=== PATIENT | female | born 1945 | race Caucasian/White ===

== ENCOUNTER 2018-03-10 09:59 | Inpatient (IN) | payer MEDICARE, MEDICAID ==
[~2018-03-10] VITALS: Ht 134.6 cm; Wt 46.0 kg
[2018-03-10] MEDS ORDERED: ACETAMINOPHEN 325MG TABLET PO STA (10:33)
[2018-03-10] MEDS ORDERED: VANCOMYCIN 1 G PREMIX 200 ML IV ONE (10:45)
[2018-03-10] MEDS ORDERED: PIPERACILLIN/TAZ 3.375G PREMIX 50 ML IV ONE (10:45)
[2018-03-10] MEDS ORDERED: SODIUM CHLORIDE 0.9% 1000ML BAG (SEPSIS BOLUS) IV ONE (10:45)
[2018-03-10 11:13] LABS: HEMOGLOBIN. 10.5 g/dL (12.0-16.0); MEAN CORPUSCULAR HEMOGLOBIN 30.6 pg (28.0-32.0); MEAN CORPUSCULAR VOLUME 92.9 fL (81.0-99.0); MEAN PLATELET VOLUME 9.1 fl (7.4-10.4); PLATELET 299 x1000/uL (130-400); RED BLOOD CELL COUNT 3.45 mill/uL (4.2-5.4); RED CELL DISTRIBUTION WIDTH 13.7 % (11.6-14.6)
[2018-03-10 11:21] LABS: INR 1.1; PROTHROMBIN TIME 11.1 sec (9.1-11.1)
[2018-03-10 11:30] LABS: CHLORIDE 103 mEq/L (98-107)
[2018-03-10 11:34] LABS: PLATELET ESTIMATE NORMAL
[2018-03-10] MEDS ORDERED: ACETAMINOPHEN 650MG SUPP PR PRN (12:45)
[2018-03-10] MEDS ORDERED: LORAZEPAM 2MG/ML CPJ IV PRN (12:45)
[2018-03-10] MEDS ORDERED: DIPHENHYDRAMINE 50MG/ML VIAL IV PRN (12:45)
[2018-03-10] MEDS ORDERED: IPRATROPIUM/ALBUTEROL 0.5-3(2.5)MG/3ML NEB INH PRN (12:45)
[2018-03-10] MEDS ORDERED: ONDANSETRON HCL 4MG/2ML INJ IV PRN (12:45)
[2018-03-10 13:07] LABS: CLARITY URINE CLEAR (CLEAR); COLOR URINE YELLOW (YELLOW); KETONES URINE TRACE (NEGATIVE); LEUKOCYTE ESTERASE URINE 1+ (NEGATIVE); NITRITE URINE NEGATIVE (NEGATIVE); OCCULT BLOOD URINE NEGATIVE (NEGATIVE); PROTEIN URINE TRACE (NEGATIVE); SPECIFIC GRAVITY URINE 1.024 (1.005-1.030); UROBILINOGEN URINE 0.2 E.U./dL (0.2-1.0)
[2018-03-10 13:50] LABS: *AMPHETAMINES SCREEN URINE NEGATIVE (NEGATIVE); *BARBITURATES SCREEN URINE NEGATIVE (NEGATIVE); *BENZODIAZEPINES SCREEN URINE NEGATIVE (NEGATIVE); *COCAINE SCREEN URINE NEGATIVE (NEGATIVE); METHADONE URINE SCREEN NEGATIVE (NEGATIVE); OPIATES URINE SCREEN NEGATIVE (NEGATIVE)
[2018-03-10 13:51] LABS: CANNABINOID URINE SCREEN NEGATIVE (NEGATIVE); PHENCYCLIDINE URINE SCREEN NEGATIVE (NEGATIVE)
[2018-03-10 15:00] VITALS: BP 143/48
[2018-03-10] MEDS: DEXT 5%/0.45% NACL 1000ML 1,000 ML IV SCH (15:00)
[2018-03-10] MEDS: ENOXAPARIN 30MG/0.3ML SYR SUBCUT SCH (15:00)
[2018-03-10] MEDS ORDERED: PANTOPRAZOLE SODIUM 40 MG/VIAL IV SCH (15:00)
[2018-03-10 16:00] VITALS: BP 138/48
[2018-03-10] MEDS ORDERED: CA C1TAB95 MT (17:49)
[2018-03-10] MEDS ORDERED: FERR220S12 MT (17:49)
[2018-03-10] MEDS ORDERED: SUCR1TAB30 PO (17:49)
[2018-03-10] MEDS ORDERED: METO-293 PO (17:49)
[2018-03-10] MEDS: PIPERACILLIN/TAZ 2.25G PREMIX 50 ML IV SCH (18:03)
[2018-03-10 20:00] VITALS: BP 118/52
[2018-03-10] MEDS: PANTOPRAZOLE SODIUM 40 MG/VIAL IV SCH (21:30)
[2018-03-11] MEDS: PIPERACILLIN/TAZ 2.25G PREMIX 50 ML IV SCH ×4 (00:14→18:00)
[2018-03-11 00:47] VITALS: BP 95/52
[2018-03-11 04:00] VITALS: BP 112/52
[2018-03-11 07:34] LABS: HEMATOCRIT. 28.8 % (36.0-48.0); HEMOGLOBIN. 9.5 g/dL (12.0-16.0); MEAN CORPUSCULAR HEMOGLOBIN 30.7 pg (28.0-32.0); MEAN CORPUSCULAR VOLUME 93.2 fL (81.0-99.0); MEAN PLATELET VOLUME 8.2 fl (7.4-10.4); PLATELET 254 x1000/uL (130-400); RED BLOOD CELL COUNT 3.09 mill/uL (4.2-5.4); RED CELL DISTRIBUTION WIDTH 13.4 % (11.6-14.6)
[2018-03-11 07:50] VITALS: BP 123/65
[2018-03-11 07:55] LABS: CHLORIDE 108 mEq/L (98-107)
[2018-03-11 08:16] LABS: LDL CHOLESTEROL 67 mg/dL (5-100)
[2018-03-11 08:17] LABS: HDL CHOLESTEROL 38 mg/dL (40-59); TOTAL IRON BINDING CAPACITY 251 ug/dL (250-450)
[2018-03-11 08:19] LABS: T4 FREE 1.48 ng/dL (0.76-1.46)
[2018-03-11 09:00] LABS: PLATELET ESTIMATE NORMAL
[2018-03-11] MEDS: PANTOPRAZOLE SODIUM 40 MG/VIAL IV SCH ×2 (09:02→20:51)
[2018-03-11] MEDS: IPRATROPIUM/ALBUTEROL 0.5-3(2.5)MG/3ML NEB INH SCH ×2 (09:05→20:34)
[2018-03-11 12:00] VITALS: BP 120/62
[2018-03-11] MEDS ORDERED: POTASSIUM CHLORIDE INJ 40 MEQ in DEXT 5% WATER 250 ML IV NR (12:00)
[2018-03-11] MEDS: DEXT 5%/0.45% NACL 1000ML 1,000 ML IV SCH (13:09)
[2018-03-11 14:45] LABS: AMYLASE 68 IU/L (25-115)
[2018-03-11] MEDS: ENOXAPARIN 30MG/0.3ML SYR SUBCUT SCH (15:13)
[2018-03-11 16:00] VITALS: BP 116/60
[2018-03-11 20:00] VITALS: BP 118/67
[2018-03-12] VITALS (7 sets, daily range): BP systolic 106–127; BP diastolic 51–62
[2018-03-12] MEDS: PIPERACILLIN/TAZ 2.25G PREMIX 50 ML IV SCH ×5 (01:02→23:46)
[2018-03-12] MEDS: DEXT 5%/0.45% NACL 1000ML 1,000 ML IV SCH ×2 (01:03→17:45)
[2018-03-12] MEDS: IPRATROPIUM/ALBUTEROL 0.5-3(2.5)MG/3ML NEB INH SCH ×4 (01:35→20:15)
[2018-03-12 08:36] LABS: CHLORIDE 111 mEq/L (98-107)
[2018-03-12 08:41] LABS: HEMATOCRIT 27.5 % (36.0-48.0); PLATELET 265 x1000/uL (130-400); RED BLOOD CELL COUNT 2.99 mill/uL (4.2-5.4); RED CELL DISTRIBUTION WIDTH 13.5 % (11.6-14.6)
[2018-03-12] MEDS: PANTOPRAZOLE SODIUM 40 MG/VIAL IV SCH ×2 (09:34→20:34)
[2018-03-13] MEDS: IPRATROPIUM/ALBUTEROL 0.5-3(2.5)MG/3ML NEB INH SCH ×4 (01:09→20:27)
[2018-03-13 03:58] VITALS: BP 91/50
[2018-03-13] MEDS: PIPERACILLIN/TAZ 2.25G PREMIX 50 ML IV SCH ×4 (05:56→18:13)
[2018-03-13 06:46] LABS: HEMATOCRIT. 30.3 % (36.0-48.0); MEAN CORPUSCULAR HEMOGLOBIN 30.7 pg (28.0-32.0); MEAN CORPUSCULAR VOLUME 92.9 fL (81.0-99.0); PLATELET 272 x1000/uL (130-400); RED BLOOD CELL COUNT 3.26 mill/uL (4.2-5.4); RED CELL DISTRIBUTION WIDTH 13.4 % (11.6-14.6)
[2018-03-13 06:52] LABS: INR 1.1; PARTIAL THROMBOPLASTIN TIME 27.8 sec (23.4-31.0); PROTHROMBIN TIME 10.6 sec (9.1-11.1)
[2018-03-13 07:46] LABS: CHLORIDE 112 mEq/L (98-107)
[2018-03-13 08:00] VITALS: BP 124/59
[2018-03-13] MEDS ORDERED: SIMETHICONE 40 MG/0.6 ML 30ML ONE (08:48)
[2018-03-13] MEDS ORDERED: KCL 20MEQ/100ML PREMIX 100 ML IV ONE (09:15)
[2018-03-13 09:25] VITALS: BP 119/68
[2018-03-13] MEDS: PANTOPRAZOLE SODIUM 40 MG/VIAL IV SCH ×3 (09:36→20:31)
[2018-03-13] MEDS: DEXT 5%/0.45% NACL 1000ML 1,000 ML IV SCH (09:39)
[2018-03-13] MEDS ORDERED: POTASSIUM CHLORIDE INJ 40 MEQ in DEXT 5% WATER 500 ML IV NR (11:00)
[2018-03-13 11:20] LABS: PLATELET ESTIMATE NORMAL
[2018-03-13 12:00] VITALS: BP 122/64
[2018-03-13] MEDS ORDERED: MIDAZOLAM HCL 5 MG/5 ML VIAL IV PRN (13:30)
[2018-03-13] MEDS ORDERED: FENTANYL CITRATE/PF 50MCG/ML 2ML VIAL IV PRN (13:31)
[2018-03-13] MEDS ORDERED: MIDAZOLAM HCL 5 MG/5 ML VIAL ONE (13:37)
[2018-03-13] MEDS ORDERED: FENTANYL CITRATE/PF 50MCG/ML 2ML VIAL ONE (13:37)
[2018-03-13 16:00] VITALS: BP 124/64
[2018-03-13 20:00] VITALS: BP 130/65
[2018-03-14] VITALS: BP 135/56
[2018-03-14] MEDS: PIPERACILLIN/TAZ 2.25G PREMIX 50 ML IV SCH ×4 (00:04→17:49)
[2018-03-14] MEDS: DEXT 5%/0.45% NACL 1000ML 1,000 ML IV SCH ×2 (00:09→09:29)
[2018-03-14 04:00] VITALS: BP 124/45
[2018-03-14] MEDS: IPRATROPIUM/ALBUTEROL 0.5-3(2.5)MG/3ML NEB INH SCH ×4 (04:14→19:58)
[2018-03-14 08:00] VITALS: BP 131/66
[2018-03-14] MEDS: PANTOPRAZOLE SODIUM 40 MG/VIAL IV SCH ×2 (09:20→20:35)
[2018-03-14 11:58] VITALS: BP 129/61
[2018-03-14 13:36] LABS: HEMATOCRIT 28.8 % (36.0-48.0); HEMOGLOBIN 9.5 g/dL (12.0-16.0); MEAN CORPUSCULAR HEMOGLOBIN 30.5 pg (28.0-32.0); MEAN CORPUSCULAR VOLUME 92.4 fL (81.0-99.0); PLATELET 262 x1000/uL (130-400); RED BLOOD CELL COUNT 3.12 mill/uL (4.2-5.4); RED CELL DISTRIBUTION WIDTH 13.4 % (11.6-14.6)
[2018-03-14 13:43] LABS: CHLORIDE 113 mEq/L (98-107)
[2018-03-14 17:08] VITALS: BP 143/74
[2018-03-14] MEDS: ENOXAPARIN 30MG/0.3ML SYR SUBCUT SCH (17:49)
[2018-03-14] MEDS ORDERED: POTASSIUM CHLORIDE 20MEQ/PACKET PO NR (20:15)
[2018-03-14 20:46] VITALS: BP 120/73
== END 2018-03-14 21:35 | disposition home or self-care (01) | DRG 871 ==
LOC: ER 10:40 → 6WST 12:31 → EDBEDREQSVC 12:50 → EDBEDREQ 12:50 → SUPCPDRO 13:21 → ENRESERV 13:44
PROVIDERS: ADMIT Internal Medicine; ATTEND Internal Medicine
PROC: 0D758ZZ Dilation of Esophagus, Via Natural or Artificial Opening Endoscopic (ICD-10-PCS; principal; 2018-03-13)
DX: A41.9 Sepsis, unspecified organism (principal); J69.0 Pneumonitis due to inhalation of food and vomit; E44.1 Mild protein-calorie malnutrition; D64.9 Anemia, unspecified; E87.6 Hypokalemia; K44.9 Diaphragmatic hernia without obstruction or gangrene; K22.2 Esophageal obstruction; D72.819 Decreased white blood cell count, unspecified; R73.9 Hyperglycemia, unspecified; R74.0 Nonspecific elevation of levels of transaminase and lactic acid dehydrogenase [LDH]; R62.50 Unspecified lack of expected normal physiological development in childhood; Z86.61 Personal history of infections of the central nervous system; Z88.7 Allergy status to serum and vaccine; Z79.899 Other long term (current) drug therapy; Z85.6 Personal history of leukemia; Z68.25 Body mass index [BMI] 25.0-25.9, adult
CPT/HCPCS: 36415; 71045; 74018; 80048; 80061; 80076; 80305; 82150; 82270; 83036; 83540; 83550; 83605; 84439; 84443; 85027; 87804; 92610; 93005; 93970; 94640; 96365; 96367; 99152; 99291; C9113; J1650; J2250; J2543; J3010; J3370; J3480; J7030; J7060; J7620; G0500

== ENCOUNTER 2018-08-09 09:33 | Inpatient (IN) | payer MEDICARE, MEDICAID ==
[~2018-08-09] VITALS: Ht 147.3 cm; Wt 60.8 kg
[~2018-08-09 09:33] MED LIST: CA C1TAB95 MT; FERR220S12 MT; METO-293 PO; SUCR1TAB30 PO
[2018-08-09] MEDS ORDERED: SODIUM CHLORIDE 0.9% 1000ML BAG (SEPSIS BOLUS) IV ONE (10:15)
[2018-08-09] MEDS ORDERED: VANCOMYCIN 1 G PREMIX 200 ML IV ONE (10:15)
[2018-08-09] MEDS ORDERED: PIPERACILLIN/TAZ 3.375G PREMIX 50 ML IV ONE (10:15)
[2018-08-09 10:29] LABS: BASOPHILS % 0.3 % (0.0-2.0); EOSINOPHILS % 0.5 % (0.0-5.0); HEMATOCRIT. 34.3 % (36.0-48.0); HEMOGLOBIN. 10.9 g/dL (12.0-16.0); LYMPHOCYTES % 10.8 % (20.0-50.0); MEAN CORPUSCULAR HEMOGLOBIN 27.9 pg (28.0-32.0); MEAN CORPUSCULAR VOLUME 87.3 fL (81.0-99.0); MEAN PLATELET VOLUME 8.5 fl (7.4-10.4); MONOCYTES % 10.4 % (2.0-8.0); PLATELET 290 x1000/uL (130-400); RED BLOOD CELL COUNT 3.92 mill/uL (4.2-5.4); RED CELL DISTRIBUTION WIDTH 18.3 % (11.6-14.6)
[2018-08-09 10:34] LABS: CHLORIDE 108 mEq/L (98-107)
[2018-08-09 10:35] LABS: PROTHROMBIN TIME 10.3 sec (9.6-11.0)
[2018-08-09 12:35] LABS: CLARITY URINE TURBID (CLEAR); COLOR URINE YELLOW (YELLOW); KETONES URINE NEGATIVE (NEGATIVE); LEUKOCYTE ESTERASE URINE 3+ (NEGATIVE); NITRITE URINE POSITIVE (NEGATIVE); OCCULT BLOOD URINE 2+ (NEGATIVE); PROTEIN URINE 1+ (NEGATIVE); SPECIFIC GRAVITY URINE 1.031 (1.005-1.030); UROBILINOGEN URINE 0.2 E.U./dL (0.2-1.0)
[2018-08-09 14:00] VITALS: BP 98/44
[2018-08-09] MEDS ORDERED: HYDRALAZINE 20MG/ML VIAL IV PRN (14:45)
[2018-08-09] MEDS ORDERED: ONDANSETRON HCL 4MG/2ML INJ IV PRN (14:45)
[2018-08-09] MEDS ORDERED: ACETAMINOPHEN 650MG SUPP PR PRN (14:45)
[2018-08-09] MEDS ORDERED: DEXTROSE 50% WATER 50ML SYRINGE IV PRN (14:45)
[2018-08-09] MEDS ORDERED: LORAZEPAM 2MG/ML CPJ IV PRN (14:45)
[2018-08-09] MEDS ORDERED: IPRATROPIUM/ALBUTEROL 0.5-3(2.5)MG/3ML NEB INH PRN (14:45)
[2018-08-09] MEDS ORDERED: MORPHINE SULFATE 2 MG/ML CPJ (NOT FOR IM USE) IV PRN (14:45)
[2018-08-09 15:17] LABS: BG CARBOXYHEMOGLOBIN 0.3 % (0.5-1.5); BG DEOXYHEMOGLOBIN 7.4 % (0.0-5.0); BG FRACTION INSPIRED OXYGEN 21; BG HCO3 ACT 25.5 mmol/L (22.0-26.0); BG METHEMOGLOBIN 0.3 % (0.0-1.5); BG OXYGEN SATURATION 92.6 % (92.0-98.5); BG PCO2 35.5 mmHg (35.0-45.0); BG PH 7.474 (7.350-7.450); BG PO2 64.7 mmHg (75.0-100.0); BG SAMPLE SITE RIGHT BRACHIAL; BG TOTAL HEMOGLOBIN 10.2 g/dL (12.0-18.0); BG VENT MODE ROOM AIR
[2018-08-09] MEDS ORDERED: ENOXAPARIN 40MG/0.4ML SYR SUBCUT SCH (17:00)
[2018-08-09] MEDS: PIPERACILLIN/TAZ 3.375G PREMIX 50 ML IV SCH (17:22)
[2018-08-09] MEDS: FAMOTIDINE 20MG/2ML VIAL IV SCH (17:23)
[2018-08-09 17:40] VITALS: BP 98/44
[2018-08-09] MEDS: INSULIN LISPRO 100 UNITS/ML SUBCUT SCH ×2 (17:40→21:46)
[2018-08-09] MEDS: BLOOD SUGAR DIAGNOSTIC STRIP TEST SCH ×2 (17:59→21:40)
[2018-08-09] MEDS: DEXT 5%/0.45% NACL 1000ML 1,000 ML IV SCH (18:46)
[2018-08-09 20:00] VITALS: BP 100/58
[2018-08-09] MEDS: IPRATROPIUM/ALBUTEROL 0.5-3(2.5)MG/3ML NEB INH SCH (21:12)
[2018-08-10] VITALS: BP 114/46
[2018-08-10] MEDS: IPRATROPIUM/ALBUTEROL 0.5-3(2.5)MG/3ML NEB INH SCH ×4 (02:43→20:05)
[2018-08-10 04:00] VITALS: BP 114/53
[2018-08-10] MEDS: PIPERACILLIN/TAZ 3.375G PREMIX 50 ML IV SCH (04:30)
[2018-08-10] MEDS: DEXT 5%/0.45% NACL 1000ML 1,000 ML IV SCH ×2 (04:36→17:38)
[2018-08-10 06:14] LABS: CHLORIDE 111 mEq/L (98-107)
[2018-08-10 06:37] LABS: BASOPHILS % 0.6 % (0.0-2.0); EOSINOPHILS % 2.5 % (0.0-5.0); HEMATOCRIT. 25.8 % (36.0-48.0); HEMOGLOBIN. 8.4 g/dL (12.0-16.0); LYMPHOCYTES % 32.8 % (20.0-50.0); MEAN CORPUSCULAR HEMOGLOBIN 28.6 pg (28.0-32.0); MEAN CORPUSCULAR VOLUME 87.9 fL (81.0-99.0); NEUTROPHILS % 57.1 % (40.0-76.0); PLATELET 238 x1000/uL (130-400); RED BLOOD CELL COUNT 2.94 mill/uL (4.2-5.4); RED CELL DISTRIBUTION WIDTH 17.9 % (11.6-14.6)
[2018-08-10] MEDS: BLOOD SUGAR DIAGNOSTIC STRIP TEST SCH ×4 (07:24→20:40)
[2018-08-10] MEDS: INSULIN LISPRO 100 UNITS/ML SUBCUT SCH ×4 (07:26→20:40)
[2018-08-10 08:00] VITALS: BP 93/51
[2018-08-10] MEDS: FAMOTIDINE 20MG/2ML VIAL IV SCH (09:07)
[2018-08-10] MEDS: PIPERACILLIN/TAZ 2.25G PREMIX 50 ML IV SCH ×3 (09:07→20:41)
[2018-08-10] MEDS ORDERED: PIPERACILLIN/TAZ 3.375G PREMIX 50 ML IV SCH (10:00)
[2018-08-10 12:00] VITALS: BP 99/50
[2018-08-10] MEDS ORDERED: POTASSIUM CHLORIDE INJ 40 MEQ in DEXT 5% WATER 250 ML IV NR (12:30)
[2018-08-10] MEDS ORDERED: ACETAMINOPHEN 650MG/20.3ML UDC PO PRN (14:30)
[2018-08-10 15:53] LABS: HEMATOCRIT 26.9 % (36.0-48.0); HEMOGLOBIN 8.7 g/dL (12.0-16.0)
[2018-08-10 16:00] VITALS: BP 102/54
[2018-08-10 20:00] VITALS: BP 106/55
[2018-08-11] VITALS: BP 119/57
[2018-08-11] MEDS: IPRATROPIUM/ALBUTEROL 0.5-3(2.5)MG/3ML NEB INH SCH ×4 (02:32→21:12)
[2018-08-11 04:00] VITALS: BP 100/56
[2018-08-11] MEDS: PIPERACILLIN/TAZ 2.25G PREMIX 50 ML IV SCH ×3 (04:24→15:18)
[2018-08-11 06:02] LABS: HEMATOCRIT 26.2 % (36.0-48.0); HEMOGLOBIN 8.3 g/dL (12.0-16.0); MEAN CORPUSCULAR HEMOGLOBIN 28.3 pg (28.0-32.0); MEAN CORPUSCULAR VOLUME 89.5 fL (81.0-99.0); PLATELET 227 x1000/uL (130-400); RED BLOOD CELL COUNT 2.93 mill/uL (4.2-5.4); RED CELL DISTRIBUTION WIDTH 18.1 % (11.6-14.6)
[2018-08-11 06:33] LABS: CHLORIDE 110 mEq/L (98-107)
[2018-08-11] MEDS: BLOOD SUGAR DIAGNOSTIC STRIP TEST SCH ×4 (06:45→21:00)
[2018-08-11] MEDS: INSULIN LISPRO 100 UNITS/ML SUBCUT SCH ×4 (06:45→21:00)
[2018-08-11] MEDS: DEXT 5%/0.45% NACL 1000ML 1,000 ML IV SCH (06:45)
[2018-08-11 08:00] VITALS: BP 99/47
[2018-08-11] MEDS: FAMOTIDINE 20MG/2ML VIAL IV SCH (10:05)
[2018-08-11 12:00] VITALS: BP 101/45
[2018-08-11] MEDS ORDERED: POTASSIUM CHLORIDE INJ 40 MEQ in DEXT 5% WATER 250 ML IV NR (12:00)
[2018-08-11 16:30] VITALS: BP 114/62
[2018-08-11 20:00] VITALS: BP 139/66
[2018-08-12] VITALS: BP 117/57
[2018-08-12] MEDS: IPRATROPIUM/ALBUTEROL 0.5-3(2.5)MG/3ML NEB INH SCH ×4 (01:34→21:00)
[2018-08-12 04:00] VITALS: BP 135/72
[2018-08-12] MEDS: DEXT 5%/0.45% NACL 1000ML 1,000 ML IV SCH (04:14)
[2018-08-12] MEDS: PIPERACILLIN/TAZ 2.25G PREMIX 50 ML IV SCH ×5 (04:15→21:27)
[2018-08-12 04:46] LABS: CHLORIDE 107 mEq/L (98-107)
[2018-08-12 06:03] LABS: HEMATOCRIT 29.3 % (36.0-48.0); HEMOGLOBIN 9.5 g/dL (12.0-16.0); MEAN CORPUSCULAR HEMOGLOBIN 28.3 pg (28.0-32.0); MEAN CORPUSCULAR VOLUME 87.5 fL (81.0-99.0); PLATELET 268 x1000/uL (130-400); RED BLOOD CELL COUNT 3.35 mill/uL (4.2-5.4); RED CELL DISTRIBUTION WIDTH 17.6 % (11.6-14.6)
[2018-08-12] MEDS: INSULIN LISPRO 100 UNITS/ML SUBCUT SCH ×4 (06:19→21:28)
[2018-08-12] MEDS: BLOOD SUGAR DIAGNOSTIC STRIP TEST SCH ×4 (06:19→21:28)
[2018-08-12 08:00] VITALS: BP 148/74
[2018-08-12] MEDS: FAMOTIDINE 20MG/2ML VIAL IV SCH (08:37)
[2018-08-12 12:00] VITALS: BP 136/67
[2018-08-12] MEDS ORDERED: POTASSIUM CHLORIDE INJ 40 MEQ in DEXT 5% WATER 250 ML IV NR (12:00)
[2018-08-12] MEDS: NITROFURANTOIN 100MG M/M CAPSULE PO SCH ×2 (14:27→21:27)
[2018-08-12 16:00] VITALS: BP 115/62
[2018-08-12 18:02] LABS: BG BASE EXCESS 1.6 mmol/L (-2.0-2.0); BG CARBOXYHEMOGLOBIN 0.9 % (0.5-1.5); BG DEOXYHEMOGLOBIN 5.5 % (0.0-5.0); BG FRACTION INSPIRED OXYGEN 28; BG HCO3 ACT 25.2 mmol/L (22.0-26.0); BG METHEMOGLOBIN 0.5 % (0.0-1.5); BG OXYGEN SATURATION 94.4 % (92.0-98.5); BG OXYHEMOGLOBIN 93.1 % (94.0-97.0); BG PCO2 36.1 mmHg (35.0-45.0); BG PH 7.462 (7.350-7.450); BG PO2 69.4 mmHg (75.0-100.0); BG SAMPLE SITE RIGHT BRACHIAL; BG TOTAL HEMOGLOBIN 11.1 g/dL (12.0-18.0); BG VENT MODE MASK - VENTI
[2018-08-12] MEDS: METHYLPREDNISOLONE SOD SUCC 40 MG/ML VIAL IV SCH (18:06)
[2018-08-12 20:21] VITALS: BP 127/65
[2018-08-12] MEDS: SUCRALFATE 1 G/10 ML UDC PO SCH (21:27)
[2018-08-13 00:18] VITALS: BP 117/57
[2018-08-13] MEDS: METHYLPREDNISOLONE SOD SUCC 40 MG/ML VIAL IV SCH ×3 (01:00→16:15)
[2018-08-13] MEDS: IPRATROPIUM/ALBUTEROL 0.5-3(2.5)MG/3ML NEB INH SCH ×4 (01:37→20:43)
[2018-08-13 04:00] VITALS: BP 97/54
[2018-08-13] MEDS: BLOOD SUGAR DIAGNOSTIC STRIP TEST SCH ×4 (06:39→21:52)
[2018-08-13] MEDS: SUCRALFATE 1 G/10 ML UDC PO SCH ×4 (06:45→21:52)
[2018-08-13] MEDS: INSULIN LISPRO 100 UNITS/ML SUBCUT SCH ×4 (06:45→21:41)
[2018-08-13] MEDS: PIPERACILLIN/TAZ 2.25G PREMIX 50 ML IV SCH ×4 (06:45→21:40)
[2018-08-13 06:58] LABS: BASOPHILS % 0.1 % (0.0-2.0); EOSINOPHILS % 0.1 % (0.0-5.0); HEMATOCRIT. 30.2 % (36.0-48.0); HEMOGLOBIN. 9.7 g/dL (12.0-16.0); LYMPHOCYTES % 12.6 % (20.0-50.0); MEAN CORPUSCULAR HEMOGLOBIN 28.2 pg (28.0-32.0); MEAN CORPUSCULAR VOLUME 87.9 fL (81.0-99.0); MEAN PLATELET VOLUME 8.8 fl (7.4-10.4); MONOCYTES % 4.2 % (2.0-8.0); PLATELET 286 x1000/uL (130-400); RED BLOOD CELL COUNT 3.43 mill/uL (4.2-5.4); RED CELL DISTRIBUTION WIDTH 17.9 % (11.6-14.6)
[2018-08-13 07:04] LABS: CHLORIDE 107 mEq/L (98-107)
[2018-08-13 08:00] VITALS: BP 115/52
[2018-08-13] MEDS: NITROFURANTOIN 100MG M/M CAPSULE PO SCH ×2 (08:28→21:40)
[2018-08-13] MEDS: FAMOTIDINE 20MG/2ML VIAL IV SCH (08:28)
[2018-08-13] MEDS: INSULIN GLARGINE UD 100 UNITS/ML SYR SUBCUT SCH ×2 (10:55→21:42)
[2018-08-13] MEDS: DEXT 5%/0.45% NACL 1000ML 1,000 ML IV SCH (11:24)
[2018-08-13 12:00] VITALS: BP 117/54
[2018-08-13] MEDS ORDERED: BLOOD SUGAR DIAGNOSTIC STRIP TEST SCH (12:10)
[2018-08-13 16:00] VITALS: BP 125/61
[2018-08-13 20:00] VITALS: BP 108/65
[2018-08-14] VITALS: BP 104/54
[2018-08-14] MEDS: METHYLPREDNISOLONE SOD SUCC 40 MG/ML VIAL IV SCH ×3 (01:02→17:05)
[2018-08-14] MEDS: DEXT 5%/0.45% NACL 1000ML 1,000 ML IV SCH (01:04)
[2018-08-14] MEDS: IPRATROPIUM/ALBUTEROL 0.5-3(2.5)MG/3ML NEB INH SCH ×4 (01:46→21:12)
[2018-08-14 04:00] VITALS: BP 120/59
[2018-08-14] MEDS: PIPERACILLIN/TAZ 2.25G PREMIX 50 ML IV SCH ×4 (04:29→20:49)
[2018-08-14] MEDS: SUCRALFATE 1 G/10 ML UDC PO SCH ×4 (06:01→20:48)
[2018-08-14] MEDS: INSULIN LISPRO 100 UNITS/ML SUBCUT SCH ×4 (06:09→20:51)
[2018-08-14] MEDS: BLOOD SUGAR DIAGNOSTIC STRIP TEST SCH ×4 (06:23→20:49)
[2018-08-14 06:46] LABS: BASOPHILS % 0.3 % (0.0-2.0); HEMOGLOBIN. 8.7 g/dL (12.0-16.0); LYMPHOCYTES % 14.8 % (20.0-50.0); MEAN PLATELET VOLUME 8.9 fl (7.4-10.4); NEUTROPHILS % 80.9 % (40.0-76.0); PLATELET 290 x1000/uL (130-400); RED CELL DISTRIBUTION WIDTH 17.5 % (11.6-14.6)
[2018-08-14 07:00] LABS: CHLORIDE 107 mEq/L (98-107)
[2018-08-14 08:00] VITALS: BP 110/67
[2018-08-14] MEDS: FAMOTIDINE 20MG/2ML VIAL IV SCH (09:47)
[2018-08-14] MEDS: NITROFURANTOIN 100MG M/M CAPSULE PO SCH ×2 (09:50→21:02)
[2018-08-14] MEDS: INSULIN GLARGINE UD 100 UNITS/ML SYR SUBCUT SCH ×2 (10:00→20:58)
[2018-08-14 12:00] VITALS: BP 124/57
[2018-08-14 14:22] LABS: BG BASE EXCESS 2.5 mmol/L (-2.0-2.0); BG CARBOXYHEMOGLOBIN 0.4 % (0.5-1.5); BG DEOXYHEMOGLOBIN 11.7 % (0.0-5.0); BG FRACTION INSPIRED OXYGEN 21; BG HCO3 ACT 26.2 mmol/L (22.0-26.0); BG METHEMOGLOBIN 0.3 % (0.0-1.5); BG OXYGEN SATURATION 88.2 % (92.0-98.5); BG OXYHEMOGLOBIN 87.6 % (94.0-97.0); BG PH 7.468 (7.350-7.450); BG PO2 55.2 mmHg (75.0-100.0); BG SAMPLE SITE LEFT BRACHIAL; BG TOTAL HEMOGLOBIN 10.6 g/dL (12.0-18.0); BG VENT MODE ROOM AIR
[2018-08-14 16:00] VITALS: BP 132/66
[2018-08-14 20:00] VITALS: BP 126/62
[2018-08-15] VITALS: BP 131/69
[2018-08-15] MEDS: IPRATROPIUM/ALBUTEROL 0.5-3(2.5)MG/3ML NEB INH SCH ×4 (01:39→20:49)
[2018-08-15 04:00] VITALS: BP 130/63
[2018-08-15] MEDS: METHYLPREDNISOLONE SOD SUCC 40 MG/ML VIAL IV SCH ×2 (04:44→17:26)
[2018-08-15] MEDS: PIPERACILLIN/TAZ 2.25G PREMIX 50 ML IV SCH ×4 (04:44→20:49)
[2018-08-15] MEDS: INSULIN LISPRO 100 UNITS/ML SUBCUT SCH ×4 (05:57→20:51)
[2018-08-15] MEDS: BLOOD SUGAR DIAGNOSTIC STRIP TEST SCH ×4 (05:57→20:37)
[2018-08-15] MEDS: SUCRALFATE 1 G/10 ML UDC PO SCH ×4 (05:57→20:37)
[2018-08-15 08:00] VITALS: BP 130/61
[2018-08-15] MEDS: NITROFURANTOIN 100MG M/M CAPSULE PO SCH ×2 (09:01→20:37)
[2018-08-15] MEDS: FAMOTIDINE 20MG/2ML VIAL IV SCH (09:01)
[2018-08-15] MEDS: INSULIN GLARGINE UD 100 UNITS/ML SYR SUBCUT SCH ×2 (09:03→20:52)
[2018-08-15 12:00] VITALS: BP 127/63
[2018-08-15 16:00] VITALS: BP 116/69
[2018-08-15 20:00] VITALS: BP 127/64
[2018-08-16] VITALS: BP 150/69
[2018-08-16] MEDS: IPRATROPIUM/ALBUTEROL 0.5-3(2.5)MG/3ML NEB INH SCH ×4 (01:01→20:51)
[2018-08-16 04:00] VITALS: BP 130/68
[2018-08-16] MEDS: PIPERACILLIN/TAZ 2.25G PREMIX 50 ML IV SCH ×4 (05:08→21:51)
[2018-08-16] MEDS: METHYLPREDNISOLONE SOD SUCC 40 MG/ML VIAL IV SCH ×2 (05:09→16:55)
[2018-08-16] MEDS: SUCRALFATE 1 G/10 ML UDC PO SCH ×4 (06:05→21:51)
[2018-08-16] MEDS: INSULIN LISPRO 100 UNITS/ML SUBCUT SCH ×4 (06:05→22:17)
[2018-08-16] MEDS: BLOOD SUGAR DIAGNOSTIC STRIP TEST SCH ×4 (06:05→21:00)
[2018-08-16 08:00] VITALS: BP 144/76
[2018-08-16] MEDS: NITROFURANTOIN 100MG M/M CAPSULE PO SCH ×2 (09:37→21:51)
[2018-08-16] MEDS: FAMOTIDINE 20MG/2ML VIAL IV SCH (09:37)
[2018-08-16] MEDS: INSULIN GLARGINE UD 100 UNITS/ML SYR SUBCUT SCH ×2 (10:42→22:17)
[2018-08-16 12:00] VITALS: BP 139/70
[2018-08-16 12:30] LABS: CHLORIDE 108 mEq/L (98-107)
[2018-08-16 12:35] LABS: HEMATOCRIT. 29.5 % (36.0-48.0); HEMOGLOBIN. 9.5 g/dL (12.0-16.0); MEAN CORPUSCULAR HEMOGLOBIN 28.2 pg (28.0-32.0); MEAN CORPUSCULAR VOLUME 87.9 fL (81.0-99.0); MEAN PLATELET VOLUME 8.1 fl (7.4-10.4); PLATELET 375 x1000/uL (130-400); RED BLOOD CELL COUNT 3.36 mill/uL (4.2-5.4); RED CELL DISTRIBUTION WIDTH 17.7 % (11.6-14.6)
[2018-08-16 14:25] LABS: PLATELET ESTIMATE NORMAL
[2018-08-16 16:00] VITALS: BP 126/60
[2018-08-16 20:00] VITALS: BP 140/63
[2018-08-17] VITALS: BP 145/71
[2018-08-17] MEDS: IPRATROPIUM/ALBUTEROL 0.5-3(2.5)MG/3ML NEB INH SCH ×4 (02:23→22:25)
[2018-08-17 04:00] VITALS: BP 120/54
[2018-08-17] MEDS: PIPERACILLIN/TAZ 2.25G PREMIX 50 ML IV SCH ×2 (04:07→09:15)
[2018-08-17] MEDS: METHYLPREDNISOLONE SOD SUCC 40 MG/ML VIAL IV SCH ×2 (04:07→17:45)
[2018-08-17 05:51] LABS: HEMATOCRIT. 29.4 % (36.0-48.0); HEMOGLOBIN. 9.6 g/dL (12.0-16.0); MEAN CORPUSCULAR HEMOGLOBIN 28.7 pg (28.0-32.0); MEAN CORPUSCULAR VOLUME 87.8 fL (81.0-99.0); MEAN PLATELET VOLUME 8.2 fl (7.4-10.4); PLATELET 407 x1000/uL (130-400); RED BLOOD CELL COUNT 3.35 mill/uL (4.2-5.4)
[2018-08-17 05:52] LABS: CHLORIDE 108 mEq/L (98-107)
[2018-08-17] MEDS: INSULIN LISPRO 100 UNITS/ML SUBCUT SCH ×4 (06:12→22:16)
[2018-08-17] MEDS: BLOOD SUGAR DIAGNOSTIC STRIP TEST SCH ×3 (06:12→21:00)
[2018-08-17] MEDS: SUCRALFATE 1 G/10 ML UDC PO SCH ×4 (06:12→22:26)
[2018-08-17 07:28] LABS: BG BASE EXCESS 5.8 mmol/L (-2.0-2.0); BG CARBOXYHEMOGLOBIN 0.2 % (0.5-1.5); BG DEOXYHEMOGLOBIN 7.3 % (0.0-5.0); BG HCO3 ACT 30.2 mmol/L (22.0-26.0); BG METHEMOGLOBIN 0.2 % (0.0-1.5); BG OXYGEN SATURATION 92.7 % (92.0-98.5); BG OXYHEMOGLOBIN 92.3 % (94.0-97.0); BG PCO2 43.3 mmHg (35.0-45.0); BG PH 7.461 (7.350-7.450); BG PO2 61.9 mmHg (75.0-100.0); BG SAMPLE SITE RIGHT BRACHIAL; BG TOTAL HEMOGLOBIN 9.5 g/dL (12.0-18.0); BG VENT MODE ROOM AIR
[2018-08-17 08:00] VITALS: BP 116/68
[2018-08-17] MEDS ORDERED: POTASSIUM CHLORIDE INJ 40 MEQ in DEXT 5% WATER 250 ML IV SCH (08:00)
[2018-08-17] MEDS ORDERED: POTASSIUM CHLORIDE 20MEQ/PACKET PO SCH ×2 (09:00→13:00)
[2018-08-17] MEDS: FAMOTIDINE 20MG/2ML VIAL IV SCH (09:15)
[2018-08-17] MEDS: NITROFURANTOIN 100MG M/M CAPSULE PO SCH ×2 (09:15→22:25)
[2018-08-17] MEDS: INSULIN GLARGINE UD 100 UNITS/ML SYR SUBCUT SCH ×2 (10:07→22:17)
[2018-08-17 10:25] LABS: PLATELET ESTIMATE SLIGHTLY INCREASED
[2018-08-17 12:00] VITALS: BP 120/70
[2018-08-17 16:00] VITALS: BP 133/70
[2018-08-17 17:21] LABS: BG BASE EXCESS 3.2 mmol/L (-2.0-2.0); BG CARBOXYHEMOGLOBIN 0.3 % (0.5-1.5); BG DEOXYHEMOGLOBIN 9.4 % (0.0-5.0); BG FRACTION INSPIRED OXYGEN 21; BG HCO3 ACT 26.5 mmol/L (22.0-26.0); BG METHEMOGLOBIN 0.3 % (0.0-1.5); BG OXYGEN SATURATION 90.5 % (92.0-98.5); BG PCO2 36.1 mmHg (35.0-45.0); BG PH 7.484 (7.350-7.450); BG PO2 56.1 mmHg (75.0-100.0); BG SAMPLE SITE RIGHT BRACHIAL; BG TOTAL HEMOGLOBIN 11.9 g/dL (12.0-18.0); BG VENT MODE ROOM AIR
[2018-08-17] MEDS: LEVOFLOXACIN 750MG PREMIX 150 ML IV SCH (17:46)
[2018-08-17 20:00] VITALS: BP 140/65
[2018-08-18] VITALS: BP 126/63
[2018-08-18] MEDS: IPRATROPIUM/ALBUTEROL 0.5-3(2.5)MG/3ML NEB INH SCH ×4 (02:15→20:31)
[2018-08-18 04:00] VITALS: BP 147/59
[2018-08-18] MEDS: METHYLPREDNISOLONE SOD SUCC 40 MG/ML VIAL IV SCH ×2 (05:39→17:56)
[2018-08-18] MEDS: BLOOD SUGAR DIAGNOSTIC STRIP TEST SCH ×4 (07:18→20:09)
[2018-08-18] MEDS: INSULIN LISPRO 100 UNITS/ML SUBCUT SCH ×4 (07:19→21:54)
[2018-08-18] MEDS: FAMOTIDINE 20MG/2ML VIAL IV SCH (09:35)
[2018-08-18] MEDS: SUCRALFATE 1 G/10 ML UDC PO SCH ×5 (09:36→21:51)
[2018-08-18] MEDS: NITROFURANTOIN 100MG M/M CAPSULE PO SCH ×3 (09:36→21:51)
[2018-08-18] MEDS: INSULIN GLARGINE UD 100 UNITS/ML SYR SUBCUT SCH ×2 (10:12→22:29)
[2018-08-18 12:00] VITALS: BP 137/69
[2018-08-18] MEDS ORDERED: FUROSEMIDE 20MG/2ML VIAL IVP SCH (13:15)
[2018-08-18 13:17] LABS: CHLORIDE 105 mEq/L (98-107)
[2018-08-18 17:00] VITALS: BP 130/70
[2018-08-18] MEDS: LEVOFLOXACIN 750MG PREMIX 150 ML IV SCH (17:56)
[2018-08-18 20:00] VITALS: BP 122/62
[2018-08-18] MEDS: CARVEDILOL 3.125 MG TABLET PO SCH (21:00)
[2018-08-19] VITALS (7 sets, daily range): BP systolic 108–149; BP diastolic 57–72
[2018-08-19] MEDS: CARVEDILOL 3.125 MG TABLET PO SCH ×3 (00:07→21:26)
[2018-08-19] MEDS: IPRATROPIUM/ALBUTEROL 0.5-3(2.5)MG/3ML NEB INH SCH ×4 (02:45→20:21)
[2018-08-19] MEDS: METHYLPREDNISOLONE SOD SUCC 40 MG/ML VIAL IV SCH ×2 (06:02→18:13)
[2018-08-19] MEDS: SUCRALFATE 1 G/10 ML UDC PO SCH ×4 (06:11→21:26)
[2018-08-19 07:08] LABS: HEMATOCRIT 29.5 % (36.0-48.0); HEMOGLOBIN 9.6 g/dL (12.0-16.0); MEAN CORPUSCULAR HEMOGLOBIN 28.1 pg (28.0-32.0); PLATELET 425 x1000/uL (130-400); RED CELL DISTRIBUTION WIDTH 18.3 % (11.6-14.6)
[2018-08-19] MEDS: BLOOD SUGAR DIAGNOSTIC STRIP TEST SCH ×4 (07:10→21:25)
[2018-08-19 07:21] LABS: CHLORIDE 103 mEq/L (98-107)
[2018-08-19] MEDS: INSULIN LISPRO 100 UNITS/ML SUBCUT SCH ×4 (07:40→21:00)
[2018-08-19] MEDS: NITROFURANTOIN 100MG M/M CAPSULE PO SCH (10:07)
[2018-08-19] MEDS: FAMOTIDINE 20MG/2ML VIAL IV SCH (10:08)
[2018-08-19] MEDS: INSULIN GLARGINE UD 100 UNITS/ML SYR SUBCUT SCH ×2 (10:27→22:00)
[2018-08-19 12:53] LABS: BG BASE EXCESS 8.7 mmol/L (-2.0-2.0); BG CARBOXYHEMOGLOBIN 0.3 % (0.5-1.5); BG DEOXYHEMOGLOBIN 15.5 % (0.0-5.0); BG HCO3 ACT 33.6 mmol/L (22.0-26.0); BG METHEMOGLOBIN 0.2 % (0.0-1.5); BG OXYGEN SATURATION 84.4 % (92.0-98.5); BG PCO2 48.5 mmHg (35.0-45.0); BG PH 7.459 (7.350-7.450); BG PO2 49.7 mmHg (75.0-100.0); BG SAMPLE SITE RIGHT BRACHIAL; BG TOTAL HEMOGLOBIN 10.4 g/dL (12.0-18.0); BG VENT MODE ROOM AIR
[2018-08-19] MEDS ORDERED: POTASSIUM CHLORIDE INJ 40 MEQ in DEXT 5% WATER 250 ML IV NR (14:00)
[2018-08-19] MEDS: LEVOFLOXACIN 750MG PREMIX 150 ML IV SCH (18:13)
[2018-08-19] MEDS ORDERED: BUDESONIDE 0.5MG/2ML NEB HHN SCH (21:00)
== END 2018-08-19 23:00 | disposition home health service (06) | DRG 178 ==
LOC: ER 09:33 → 8WST 11:40 → EDBEDREQ 11:43 → EDBEDREQSVC 11:43 → ENRESERV 13:09
PROVIDERS: ADMIT Internal Medicine; ATTEND Internal Medicine
DX: J69.0 Pneumonitis due to inhalation of food and vomit (principal); N39.0 Urinary tract infection, site not specified; E46 Unspecified protein-calorie malnutrition; E87.2 Acidosis; J96.10 Chronic respiratory failure, unspecified whether with hypoxia or hypercapnia; B96.89 Other specified bacterial agents as the cause of diseases classified elsewhere; E87.6 Hypokalemia; E11.65 Type 2 diabetes mellitus with hyperglycemia; R62.50 Unspecified lack of expected normal physiological development in childhood; D64.9 Anemia, unspecified; B96.20 Unspecified Escherichia coli [E. coli] as the cause of diseases classified elsewhere; D70.9 Neutropenia, unspecified; K21.9 Gastro-esophageal reflux disease without esophagitis; Z99.81 Dependence on supplemental oxygen; Z88.7 Allergy status to serum and vaccine; Z79.899 Other long term (current) drug therapy; Z68.28 Body mass index [BMI] 28.0-28.9, adult
CPT/HCPCS: 36415; 36600; 71045; 73610; 80048; 82270; 82375; 82805; 82962; 83036; 83605; 83735; 83880; 84132; 84484; 85014; 85018; 85027; 86038; 87077; 87186; 92610; 93005; 93306; 93970; 94640; 97116; 97162; 97530; 99291; A6261; C1893; J1650; J1815; J1940; J1956; J2543; J2920; J3370; J3480; J3490; J7030; J7042; J7050; J7060; J7620; J7626

== ENCOUNTER → 2018-12-22 | Day surgery (SDC) | payer MEDICARE, MEDICAID ==
[~2018-12-22] VITALS: Ht 147.3 cm; Wt 47.6 kg
[~2018-12-22] MED LIST changes: -CA C1TAB95 MT; +CALC-1042 PO; +CARV3.1242 PO; +FLUMAZENIL 0.1 MG/ML 5ML VIAL IV ONE; +LACTATED RINGERS 1,000 ML IV SCH; +MAGN250T29 PO; +MIDAZOLAM HCL 5 MG/5 ML VIAL ONE; +PROPOFOL 200MG/20ML VIAL IV ONE; +SIMETHICONE 40 MG/0.6 ML 30ML ONE; +SUCCINYLCHOLINE CHLORIDE 200MG/10ML IV ONE
[2018-12-22 09:30] LABS: BASOPHILS % 1.6 % (0.0-2.0); EOSINOPHILS % 4.3 % (0.0-5.0); HEMATOCRIT. 38.2 % (36.0-48.0); HEMOGLOBIN. 12.4 g/dL (12.0-16.0); MEAN CORPUSCULAR VOLUME 89.7 fL (81.0-99.0); MEAN PLATELET VOLUME 8.7 fl (7.4-10.4); MONOCYTES % 14.9 % (2.0-8.0); NEUTROPHILS % 23.2 % (40.0-76.0); PLATELET 333 x1000/uL (130-400); RED BLOOD CELL COUNT 4.26 mill/uL (4.2-5.4); RED CELL DISTRIBUTION WIDTH 14.6 % (11.6-14.6)
[2018-12-22 09:33] LABS: CHLORIDE 104 mEq/L (98-107)
== END | disposition home or self-care (01) ==
LOC: OR 07:52
PROVIDERS: ATTEND Internal Medicine Gastroenterology
DX: K22.2 Esophageal obstruction (principal); R13.19 Other dysphagia; K44.9 Diaphragmatic hernia without obstruction or gangrene; I10 Essential (primary) hypertension; K13.79 Other lesions of oral mucosa; R41.82 Altered mental status, unspecified; Z79.899 Other long term (current) drug therapy; Z88.8 Allergy status to other drugs, medicaments and biological substances; Z87.440 Personal history of urinary (tract) infections
CPT/HCPCS: 36415; 43239; 43249; 80048; 85025; 88305; 88312; 93005; J0330; J2250; J2704; J3490